=== PATIENT | female | born 1930 | race Caucasian/White ===

== ENCOUNTER 2016-09-23 18:42 | Emergency (ER) | payer OTHER, BC ==
[~2016-09-23] VITALS: Ht 170.2 cm; Wt 72.7 kg
[2016-09-23 19:17] LABS: HEMATOCRIT 40.6 % (36.0-46.0); MCH 30.2 PG (29.0-34.0); MCHC 33.5 G/DL (30.0-36.0); MEAN PLAT.VOLUME 10.2 uM^3 (9.5-12.4); PLATELET COUNT 303 K/uL (156-360); RBC DIS.WIDTH-CV 12.6 % (11.8-14.6); RBC DIS.WIDTH-SD 41.9 % (39-53); RED BLOOD COUNT 4.51 M/uL (3.80-5.20); WHITE BLOOD COUNT 8.6 K/uL (4.1-10.2)
[2016-09-23 19:36] LABS: CHLORIDE 93 mEq/L (99-109); POTASSIUM 4.6 mEq/L (3.7-5.4); SODIUM 134 mEq/L (136-147)
[2016-09-23 19:38] LABS: GLUCOSE 161 mg/dL (70-99)
[2016-09-23 19:39] LABS: ANION GAP 10 MEQ/L (2-14)
[2016-09-23 19:40] LABS: TOTAL BILIRUBIN 0.6 mg/dL (0.0-1.0)
[2016-09-23 19:42] LABS: ALKALINE PHOSPHATASE 96 IU/L (3-129); GFR ESTIMATE (CALCULATED) 56 mL/min/
[2016-09-23 19:43] LABS: UREA NITROGEN (BUN) 18 mg/dL (9-23)
[2016-09-23 19:53] LABS: ADD MIUA? NO; BILIRUBIN NEGATIVE; BLOOD NEGATIVE; COLOR YELLOW ((YELLOW)); GLUCOSE (STRIP) NEGATIVE; KETONES NEGATIVE; LEUKOCYTES NEGATIVE; NITRITE NEGATIVE; PROTEIN (STRIP) NEGATIVE; SPECIFIC GRAVITY 1.012 (1.000-1.030); UCUL ADDED? NO; UROBILINOGEN 0.2 MG/DL (0.2-1.0)
[2016-09-23 23:07] LABS: POINT-OF-CARE METER ID UU14100415
[2016-09-24 01:03] LABS: POINT-OF-CARE METER ID UU14100415
[2016-09-24] MEDS ORDERED: SENNA8.6 MG PO (02:02)
[2016-09-24] MEDS ORDERED: COLACE100 MG PO (02:02)
[2016-09-24 02:29] VITALS: BP 182/88
== END 2016-09-24 02:31 | disposition home or self-care (01) ==
LOC: EME 18:42
PROVIDERS: Emergency Medicine
DX: K59.00 Constipation, unspecified (principal); E11.9 Type 2 diabetes mellitus without complications; I10 Essential (primary) hypertension; Z95.1 Presence of aortocoronary bypass graft; Z88.2 Allergy status to sulfonamides; Z87.891 Personal history of nicotine dependence
CPT/HCPCS: 74176; 80053; 81003; 82948; 85027; 99281; 99285; J2270; J2405; J3010; J7030